=== PATIENT | male | born 1965 | race Hispanic/Latino ===

== ENCOUNTER → 2019-05-13 | Outpatient (CLI) | payer OTHER | END | disposition home or self-care (01) | LOC: RAH 10:12 | PROVIDERS: ATTEND Internal Medicine | DX: K76.0 Fatty (change of) liver, not elsewhere classified (principal) | CPT/HCPCS: 76705 ==

== ENCOUNTER → 2024-12-21 | Outpatient (CLI) | payer OTHER ==
--- NOTE | 2024-12-21 11:31 | HMCIMG ---
US ABDOMINAL COMPLETE REASON: unspecified abd pain COMPARISON: 05/13/2018 FINDINGS: There is normal sonographic appearance of the liver. There are no focal mass lesions. The liver is not enlarged.There is a normal-appearing gallbladder. Kidneys appear normal in size and appearance. There is no evidence of mass, stone or hydronephrosis. Spleen and common duct appear normal inferior vena cava appears normal. Aorta was not well visualized. The pancreas appears normal as well. IMPRESSION: 1. Unremarkable abdomen sonogram although the aorta was not well visualized.
== END | disposition home or self-care (01) ==
LOC: RAH 08:08
PROVIDERS: ATTEND Internal Medicine
DX: R10.9 Unspecified abdominal pain (principal)
CPT/HCPCS: 76700

== ENCOUNTER 2025-06-22 19:16 | Emergency (ER) | payer OTHER ==
[~2025-06-22] VITALS: Ht 160 cm; Wt 76.7 kg
--- NOTE | 2025-06-22 19:28 | ERN ---
ED Note History of Present Illness Stated Complaint: C/O PAIN TO RIGHT LEG AFTER FALLING IN HOLE Chief Complaint: Lower Extremity Pain/Injury Time Seen by MD: 19:21 Time Seen by Midlevel: 19:21 Dictation: The patient is a 60-year-old male with a history of seizures who presents to the emergency department with complaints of right leg pain after he accidentally fall into a hole that is about a 3 ft deep. Patient denies any back pain abdominal pain, denies any other injuries from the fall. Allergies: Coded Allergies: No Known Allergies (Unverified Allergy, Unknown, 06/22/25) Past Medical History Past Medical History: Hypertension, Seizure Surgical History: Other RN Note Reviewed/Agreed w/PFSH: Yes (With a) Review of System Dictation Constitutional: Negative for fever,chills, and weight loss Eyes: Negative for injury, pain,redness, and discharge ENT: Negative for injury,pain or swelling Cardiovascular: Negative for chest pain, palpitations, and edema Respiratory: Negative for shortness of breath, cough, and wheezing, Abdomen/GI: Negative for abdominal pain, nausea, vomiting, diarrhea, and constipation Back: Negative for injury and pain : Negative for injury, bleeding and discharge MS/Extremity: positive for right leg pain Skin: Negative for rash, and discoloration Neuro: Negative for headache, weakness, numbness, tingling, and seizure Psych: Negative for suicide ideation, homicidal ideation, and hallucinations Initial Vital Sign VS Vital Signs Date Time Temp Pulse Resp B/P (MAP) Pulse Ox O2 Delivery O2 Flow Rate FiO2 06/22/25 19:18 98.2 75 20 142/89 98 Room Air 06/22/25 19:29 0 21 Physical Exam Dictation Vital Signs reviewed General Appearance: Alert, oriented x 3, no acute distress, well developed, nourished. Head and Face: non-traumatic. Eyes: PERRL, pink conjunctivas, eyelid no trauma, anterior chamber with arcus senilis. Ears: Pinnas intact and no signs of trauma or erythema ear canals clear and no discharge TM no erythema Nose: No discharge, no bleeding. Oropharynx: Mouth normal, tongue pink. pharynx clear,no erythema, tonsils no exudates, no abscesses noted, mucous membrane moist Neck: Supple, non-tender, no thyromegaly, no masses, no JVD, no bruits Breast:Deferred Chest:No tenderness, no crepitus, no paradoxical movement, no retractions Lungs:Clear, well-ventilated, symmetric, no rales, no wheezing, no rhonchi, no stridor, good breath sounds bilaterally Heart: Regular rate, regular rhythm, no murmur, no gallops Vascular: no peripheral edema, dorsalis pedis 3+ bilaterally Abdomen: Soft, positive bowel sounds, nondistended, no guarding, nontender, no rebound, no masses no hepatomegaly, no splenomegaly, no Dimas's sign, no hernias. Rectal: Deferred Genital: Deferred Neurological: Normal speech, motor function intact, sensory function intact Musculoskeletal: Neck nontender, full range of motion, back nontender, full range of motion, Extremities: nontender, full range of motion , tenderness to right upper leg, full range of motion Skin: Color pink, dry, no turgor, no rash, no lacerations, no abrasions, no contusions. Lymphatic: Deferred Results (Laboratory/Radiology) Laboratory/Radiology CLINICAL HISTORY: fall COMPARISON: None provided. FINDINGS: BONES: No acute fracture or aggressive appearing osseous lesion. JOINTS: No dislocation. SOFT TISSUES: The soft tissues are unremarkable. IMPRESSION: No acute osseous abnormality. /[place] REASON: fall ORDERING PHYSICIAN: JULIO NORIEGA CONTINUOUS WAVE OPERATOR PROCEDURE: TIBFIB RT - TIBIA/FIBULA 2VWS RT EXAM: CR right Tibia and fibula, 3 View. CLINICAL HISTORY: fall COMPARISON: None provided. FINDINGS: BONES: No acute fracture or aggressive appearing osseous lesion. JOINTS: No dislocation. The joint spaces are normal. SOFT TISSUES: The soft tissues are unremarkable. IMPRESSION: No acute osseous abnormality. /[place] Labs Reviewed?: Yes ED Course ED Course Orders Procedure Category Date Status Time Femur 2vw Right RAD 06/22/25 Resulted 19:25 Tibia/Fibula 2vws Rt RAD 06/22/25 Resulted 19:25 Ketorolac 60mg/2ml PHA 06/22/25 Complete (Toradol 60mg/2ml) 19:30 Current Medications Medications (Trade) Dose Ordered Sig/Sofia Route PRN Reason Start Time Stop Time Status Last Admin Dose Admin Ketorolac Tromethamine (toRADol 60MG/ 2ML) 60 mg ONCE ONCE IM 06/22/25 19:30 06/22/25 19:31 DC 06/22/25 19:33 Vital Signs Date Time Temp Pulse Resp B/P (MAP) Pulse Ox O2 Delivery O2 Flow Rate FiO2 06/22/25 19:29 98.2 75 20 142/89 98 Room Air* 0 21 06/22/25 19:18 98.2 75 20 142/89 98 Room Air Medical Decision Making MDM The patient is a 60-year-old male with a history of seizures who presents to the emergency department with complaints of right leg pain after he accidentally fall into a hole that is about a 3 ft deep. Patient reports pain is worse and his thigh. Patient denies any back pain abdominal pain, denies any other injuries from the fall. X-ray showed no acute fractures. On physical exam patient is ambulatory, no open wounds noted, no swelling noted to knee, no swelling or deformity noted to ankle. Neurovascularly intact. Patient will be discharged to follow up with the PCP. Differential diagnosis: Femur fracture, tib-fib fracture, lower leg contusion Need for hospitalization: Patient does not meet criteria for hospitalization. There are no social concerns with this patient. DX & DISP Disposition: Discharge Departure Impression: Primary Impression: Right leg pain Additional Impression: Fall Condition: Stable Additional Instructions: Your x-ray showed no acute fractures. Please follow up with the primary doctor in 1-2 days. If anything worsens please return to ER. FOLLOW-UP WITH PRIMARY CARE PROVIDER IN 1 TO 2 DAYS. TAKE MEDICATIONS DIREC ANAHI HERE IN THE EMERGENCY ROOM. OKAY TO CONTINUE HOME MEDICATIONS UNLESS OTHERWISE DISCUSSED DURING YOUR VISIT IN THE EMERGENCY ROOM TODAY. RETURN TO YOUR NEAREST EMERGENCY ROOM IF SYMPTOMS WORSEN OR IF THERE IS NO IMPROVEMENT. CALL 911 IF YOU NEED IMMEDIATE ASSISTANCE. TAKE TYLENOL DOHF-SMA-XVEACHD NEEDED AND IF NO CONTRAINDICATIONS ARE PRESENT. INCREASE ORAL HYDRATION. A WOUND CULTURE OR URINE CULTURE WAS ORDERED HERE IN THE EMERGENCY ROOM DEPARTMENT PLEASE FOLLOW-UP WITH PRIMARY CARE PROVIDER AND ADVISE THEM TO GET REPEAT PORTS FROM OUR FACILITY. IF YOU HAD ANY KOBE WRAP/SPLINTS THAT WERE APPLIED HERE, PLEASE DO NOT REMOVE THEM UNTIL YOU SEE YOUR PRIMARY CARE OR SPECIALTY. Referrals: RICH RIVERA MD (PCP) Time of Disposition: 21:34 I have reviewed the case, and I agree with, Diagnosis and Plan JULIO NORIEGA [facility] Jun 22, 2025 19:28
--- NOTE | 2025-06-22 21:27 | HMCIMG ---
EXAM: CR right Tibia and fibula, 3 View. CLINICAL HISTORY: fall COMPARISON: None provided. FINDINGS: BONES: No acute fracture or aggressive appearing osseous lesion. JOINTS: No dislocation. The joint spaces are normal. SOFT TISSUES: The soft tissues are unremarkable. IMPRESSION: No acute osseous abnormality. /[place]
--- NOTE | 2025-06-22 21:28 | HMCIMG ---
EXAM: CR right Femur, 4 View. CLINICAL HISTORY: fall COMPARISON: None provided. FINDINGS: BONES: No acute fracture or aggressive appearing osseous lesion. JOINTS: No dislocation. SOFT TISSUES: The soft tissues are unremarkable. IMPRESSION: No acute osseous abnormality. /[place]
[2025-06-22 21:55] VITALS: BP 132/84; PULSE 72; RESP 20; TEMP 98.2; O2SAT 98
== END 2025-06-22 21:56 | disposition home or self-care (01) ==
LOC: EDH 19:16
DX: M79.661 Pain in right lower leg (principal); I10 Essential (primary) hypertension; W17.2XXA Fall into hole, initial encounter; Y93.89 Activity, other specified; Y92.89 Other specified places as the place of occurrence of the external cause; Y99.8 Other external cause status
CPT/HCPCS: 99284; 73552; 73590; 96372; J1885

== ENCOUNTER → 2025-06-27 | Outpatient (CLI) | payer OTHER ==
[2025-06-27 11:37] LABS: IMMATURE GRANULOCYTE ABSOLUTE 0.01 K/uL (0-1); NUCLEATED RED BLOOD CELLS 0.0 % (0.0-0.19); PLATELET COUNT (AUTO) 257 K/uL (130-400); RED BLOOD CELL COUNT(AUTO) 4.47 MIL/uL (4.50-6.20); RED CELL DISTRIBUTION WIDTH 12.6 % (11.0-15.5); WHITE BLOOD COUNT (AUTO) 4.8 K/uL (4.8-10.8)
[2025-06-27 11:52] LABS: ASPARTATE AMINOTRANSFERASE 25.0 U/L (10-37); CREATININE 0.7 mg/dL (0.5-1.3); GLOMERULAR FILTR. RATE CALC 106.0 mL/min (>90); GLUCOSE,RANDOM 93.0 mg/dL (70-105); SODIUM SERUM 141.0 mmol/L (136-145); TOTAL PROTEIN, SERUM 7.6 g/dL (6.0-8.3); UREA NITROGEN, BLOOD 10.0 mg/dL (7-18)
== END | disposition home or self-care (01) ==
LOC: LAB 10:47
PROVIDERS: ATTEND Internal Medicine Gastroenterology
DX: R10.30 Lower abdominal pain, unspecified (principal)
CPT/HCPCS: 36415; 80053; 85025

== ENCOUNTER 2025-07-04 10:17 | Emergency (ER) | payer OTHER ==
[~2025-07-04] VITALS: Ht 157.5 cm; Wt 77.1 kg
[2025-07-04 11:25] LABS: IMMATURE GRANULOCYTE ABSOLUTE 0.04 K/uL (0-1); NUCLEATED RED BLOOD CELLS 0.0 % (0.0-0.19); PLATELET COUNT (AUTO) 249 K/uL (130-400); RED BLOOD CELL COUNT(AUTO) 4.40 MIL/uL (4.50-6.20); RED CELL DISTRIBUTION WIDTH 12.4 % (11.0-15.5); WHITE BLOOD COUNT (AUTO) 5.2 K/uL (4.8-10.8)
[2025-07-04 11:31] LABS: CREATININE 0.7 mg/dL (0.5-1.3); GLOMERULAR FILTR. RATE CALC 106.0 mL/min (>90); GLUCOSE,RANDOM 101.0 mg/dL (70-105); SODIUM SERUM 139.0 mmol/L (136-145); UREA NITROGEN, BLOOD 11.0 mg/dL (7-18)
[2025-07-04 11:35] LABS: ASPARTATE AMINOTRANSFERASE 23.0 U/L (10-37); TOTAL PROTEIN, SERUM 7.7 g/dL (6.0-8.3)
--- NOTE | 2025-07-04 12:20 | HMCIMG ---
EXAM: Non-contrast CT examination of the Brain CLINICAL HISTORY: Seizure. TECHNIQUE: Thin collimated axial CT images of the brain were obtained, with sagittal and coronal reformatted images also submitted. CT scan done according to ALARA (As Low as Reasonably Achievable). CONTRAST USED: None. COMPARISON: None provided. FINDINGS: No acute intracranial abnormality is present. No acute cortical infarction, hemorrhage, mass, or mass effect. No hydrocephalus or abnormal extra-axial fluid collections. Cavum septum vergae, normal variant. The posterior fossa is unremarkable. The skull base and calvarium are intact. The included portions of the mastoid air cells are clear. Mild mucosal thickening in the bilateral ethmoid air cells. IMPRESSION: No acute intracranial abnormality is present. /[place]
--- NOTE | 2025-07-04 12:37 | ERN ---
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 Patient was in the outpatient imaging center getting a CT scan of the abdomen for low abdominal pain in the has been having for two weeks when he had a seizure. Patient states he is still having lower abdominal pain. Seizures were described as patient looks dazed, as per daughter at bedside that is the where the patient gets his seizures. Patient in his on Dilantin and Keppra. Denies any fever, nausea vomiting or diarrhea. Allergies: Coded Allergies: No Known Allergies (Unverified Allergy, Unknown, 06/22/25) Home Meds Active Scripts Cephalexin Monohydrate (Keflex) 500 Mg Cap, 500 MG PO QID for 7 Days, #28 CAP Prov:SHIVA GORE CENTRAL SUPPLY NURSE 07/04/25 Past Medical History Past Medical History: Hypertension, Seizure Additional Past Medical Hx: NON COMPLIANT W/ HTN MEDS Surgical History: Other Review of System Dictation Constitutional: Negative for fever,chills, and weight loss Eyes: Negative for injury, pain,redness, and discharge ENT: Negative for injury,pain or swelling Cardiovascular: Negative for chest pain, palpitations, and edema Respiratory: Negative for shortness of breath, cough, and wheezing, Abdomen/GI: Complaining of lower abdominal pain, no nausea, no vomiting, no diarrhea, and no constipation Back: Negative for injury and pain : Negative for injury, bleeding and discharge MS/Extremity: Negative for injury and deformity Skin: Negative for rash, and discoloration Neuro: Negative for headache, weakness, numbness, tingling, and seizure Psych: Negative for suicide ideation, homicidal ideation, and hallucinations Review of Systems: was completed Initial Vital Sign VS Vital Signs Date Time Temp Pulse Resp B/P (MAP) Pulse Ox O2 Delivery O2 Flow Rate FiO2 07/04/25 10:18 97.9 89 16 126/93 97 Room Air 0 07/04/25 10:23 21 Physical Exam Dictation General: awake, alert, NAD Head/Face: Normocephalic, atraumatic Eyes: PERRL, EOMI, vision at baseline ENT: oral cavity clear, TMs clear, no signs of infection Neck: Trachea midline, supple, no nuchal rigidity Cardiovascular: RRR, normal S1/S2, No MRGs, no JVD Respiratory: CTAB, no respiratory distress, No rales or wheezes Abdomen: Soft, non-tender, non-distended, normal bowel sounds, no guarding or rebound. Skin: Warm, dry, normal turgor, no rash MS/Extremity: Pulses equal, no cyanosis, neurovascular intact, FROM Neuro: COAx4, GCS 15, strength 5/5, CN 2-12 intact, normal cerebellar exam, normal gait, Psych: Normal behavior, mood, and affect normal Results (Laboratory/Radiology) Laboratory/Radiology Laboratory Tests Test 07/04/25 10:56 07/04/25 15:16 White Blood Count 5.2 K/uL (4.8-10.8) Red Blood Count 4.40 MIL/uL (4.50-6.20) L Hemoglobin 14.7 g/dL (14.0-18.0) Hematocrit 43.2 % (42-54) Mean Corpuscular Volume 98.2 fL (79-99) Mean Corpuscular Hemoglobin 33.4 pg (27.0-33.0) H Mean Corpuscular Hemoglobin Concent 34.0 g/dL (32.0-36.0) Red Cell Distribution Width 12.4 % (11.0-15.5) Platelet Count 249 K/uL (130-400) Mean Platelet Volume 8.8 fL (7.5-10.5) Immature Granulocyte % (Auto) 0.8 % (0-1) Neutrophils (%) (Auto) 59.1 % (40.0-77.0) Lymphocytes (%) (Auto) 33.7 % (21.0-51.0) Monocytes (%) (Auto) 3.7 % (3.0-13.0) Eosinophils (%) (Auto) 2.1 % (0.0-8.0) Basophils (%) (Auto) 0.6 % (0.0-5.0) Neutrophils # (Auto) 3.1 K/uL (1.8-7.7) Lymphocytes # (Auto) 1.7 K/uL (1.0-4.8) Monocytes # (Auto) 0.2 K/uL (0.1-1.0) Eosinophils # (Auto) 0.11 K/uL (0.00-0.70) Basophils # (Auto) 0.03 K/uL (0.00-0.20) Absolute Immature Granulocyte (auto 0.04 K/uL (0-1) Nucleated Red Blood Cells 0.0 % (0.0-0.19) Sodium Level 139 mmol/L (136-145) Potassium Level 3.7 mmol/L (3.5-5.1) Chloride Level 102 mmol/L (101-111) Carbon Dioxide Level 30 mmol/L (21-32) Blood Urea Nitrogen 11 mg/dL (7-18) Creatinine 0.7 mg/dL (0.5-1.3) Glomerular Filtration Rate Calc 106 mL/min (>90) Random Glucose 101 mg/dL (70-105) Total Calcium 8.5 mg/dL (8.5-10.1) Total Bilirubin 0.3 mg/dL (0.2-1.0) Direct Bilirubin 0.1 mg/dL (0.0-0.3) Aspartate Amino Transf (AST/SGOT) 23 U/L (10-37) Alanine Aminotransferase (ALT/SGPT) 29 U/L (12-78) Alkaline Phosphatase 138 U/L (50-136) H Total Protein 7.7 g/dL (6.0-8.3) Albumin 4.2 g/dL (3.5-5.0) Lipase 20 U/L (16-77) Phenytoin (Dilantin) Level 21.4 mcg/mL (10.0-20.0) H Urine Color LIGHT-YELLOW (YELLOW) Urine Appearance CLOUDY (CLEAR) H Urine pH 7.5 (5.0-8.0) Urine Specific [place] 1.027 (1.001-1.031) Urine Protein NEGATIVE mg/dL (NEGATIVE) Urine Glucose (UA) 70 mg/dL (NEGATIVE) H Urine Ketones NEGATIVE mg/dL (NEGATIVE) Urine Occult Blood NEGATIVE (NEGATIVE) Urine Nitrate NEGATIVE (NEGATIVE) Urine Bilirubin NEGATIVE mg/dL (NEGATIVE) Urine Urobilinogen 0.2 mg/dL (0.2-1.0) Urine Leukocyte Esterase NEGATIVE Tammy/uL Urine RBC 2-5 /HPF (0-1) H Urine WBC 2-5 /HPF (0-1) H Urine Amorphous Crystals (Auto) RARE /LPF (None Seen) Urine Bacteria FEW /HPF (None Seen) Urine Opiates Screen NEGATIVE (NEGATIVE) Urine Barbiturates Screen NEGATIVE (NEGATIVE) Urine Phencyclidine Screen NEGATIVE (NEGATIVE) Urine Amphetamines Screen NEGATIVE (NEGATIVE) Urine Benzodiazepines Screen NEGATIVE (NEGATIVE) Urine Cocaine Screen NEGATIVE (NEGATIVE) Urine Marijuana (THC) Screen NEGATIVE (NEGATIVE) Labs Reviewed?: Yes CT Scan Comment: [place] [id number] [id number] IMAGING REPORT Signed PATIENT: ANDREWS SAHNI JR MR#: [id number] : 1965 SEX: M AGE: 60 LOCATION: [facility] ORDER 1029 STATUS: REG [facility] REPORT#: [id number] SERVICE 26 REASON: lower abdominal pain ORDERING PHYSICIAN: SHIVA GORE NP PROCEDURE: HEAD WO - CT HEAD/BRAIN W/O CONTRAST EXAM: Non-contrast CT examination of the Brain CLINICAL HISTORY: Seizure. TECHNIQUE: Thin collimated axial CT images of the brain were obtained, with sagittal and coronal reformatted images also submitted. CT scan done according to ALARA (As Low as Reasonably Achievable). CONTRAST USED: None. COMPARISON: None provided. FINDINGS: No acute intracranial abnormality is present. No acute cortical infarction, hemorrhage, mass, or mass effect. No hydrocephalus or abnormal extra-axial fluid collections. Cavum septum vergae, normal variant. The posterior fossa is unremarkable. The skull base and calvarium are intact. The included portions of the mastoid air cells are clear. Mild mucosal thickening in the bilateral ethmoid air cells. IMPRESSION: No acute intracranial abnormality is present. /[place] DICTATED BY: MALACHI ZAVALA Jr., MD DATE: 07/04/251318 ELECTRONICALLY SIGNED BY: MALACHI ZAVALA Jr., MD DATE: 07/04/251318 [place] [address] [phone] IMAGING REPORT Signed PATIENT: ANDREWS SAHNI JR MR#: [id number] : 1965 SEX: M AGE: 60 LOCATION: [facility] ORDER 1029 STATUS: REG ER REPORT#: [id number] SERVICE 1027 REASON: lower abdominal pain ORDERING PHYSICIAN: SHIVA GORE NP PROCEDURE: ABD PEL W - CT ABDOMEN/PELVIS W/CONTRAST EXAM: CT abdomen and pelvis with IV contrast HISTORY: Lower abdominal pain TECHNIQUE: Multiple axial CT slices through the abdomen and pelvis with IV contrast. Coronal and sagittal reconstructions were performed. CT scans are performed using one of these three dose reduction techniques: automated exposure control, adjustment of the mA and/or kV according to patient size, or use of iterative reconstruction techniques. COMPARISON: 07/04/2025 FINDINGS: Atelectasis seen in the lung bases. Few tiny hepatic cysts. Gallbladder is unremarkable. Spleen is normal. No pancreatic lesions low density left adrenal lesion possible representing adenoma. Bilateral renal cysts. No significant hydronephrosis. Mild thickening of the bladder wall. Calcification seen in the prostate. No free fluid. No pneumoperitoneum. No bowel dilatation. Appendix is normal. No abdominal/pelvic lymphadenopathy. Abdominal vasculature is patent. Vascular calcifications. Degenerative changes. IMPRESSION: Mild thickening of the bladder wall possible secondary to underdistention or infection. /[place] DICTATED BY: ISI GLASGOW MD DATE: 07/04/251710 ELECTRONICALLY SIGNED BY: ISI GLASGOW MD DATE: 07/04/251710 ED Course ED Course Orders Procedure Category Date Status Time Cbc With Differential LAB 07/04/25 Complete 10:27 Basic Metabolic Panel LAB 07/04/25 Complete 10:27 Hepatic Function Panel LAB 07/04/25 Complete 10:27 Lipase LAB 07/04/25 Complete 10:27 Urinalysis Profile LAB 07/04/25 Complete 10:27 Drug Screen Urine LAB 07/04/25 Complete 10:27 Ct Abdomen/Pelvis CT 07/04/25 Resulted W/Contrast 10:27 Ct Head/Brain W/O CT 07/04/25 Resulted Contrast 10:27 Levetiracetam 500 PHA 07/04/25 Complete Mg/5 Ml Sd V (Keppra 5 14:19 Iohexol (Omnipaque) PHA 07/04/25 Complete 14:28 Iohexol (Omnipaque) PHA 07/04/25 Complete 14:48 Ceftriaxone 1g Vial PHA 07/04/25 In Process (Rocephine 1g Inj) 16:28 Phenytoin (Sergo) In LAB 07/04/25 Complete House 16:49 Levetiracetam 500 PHA 07/04/25 In Process Mg/5 Ml Sd V (Keppra 5 18:08 Current Medications Medications (Trade) Dose Ordered Sig/Sofia Route PRN Reason Start Time Stop Time Status Last Admin Dose Admin Ceftriaxone Sodium (ROCEphine 1G INJ) 1 gm ONCE IVPB 07/04/25 16:28 07/04/25 20:30 07/04/25 16:44 Iohexol (Omnipaque) 75 ml STK-MED ONCE IV 07/04/25 14:28 07/04/25 14:32 DC Iohexol (Omnipaque) 75 ml STK-MED ONCE IV 07/04/25 14:48 07/04/25 14:48 DC Levetiracetam (kepPRA 500 MG/5 ML SD VIAL) 1,000 mg ONCE IV 07/04/25 18:08 07/04/25 22:30 07/04/25 18:24 Levetiracetam (kepPRA 500 MG/5 ML SD VIAL) 1,000 mg ONCE STAT IV 07/04/25 14:19 07/04/25 14:23 DC 07/04/25 14:36 Vital Signs Date Time Temp Pulse Resp B/P (MAP) Pulse Ox O2 Delivery O2 Flow Rate FiO2 07/04/25 17:45 98.1 100 18 137/83 100 Room Air* 0 07/04/25 17:05 98.1 96 18 137/81 96 Room Air* 0 07/04/25 16:34 98.1 100 18 153/80 98 Room Air* 0 07/04/25 15:21 98.1 95 18 150/86 97 Room Air* 0 07/04/25 14:45 98.1 91 18 155/82 97 Room Air* 0 07/04/25 13:29 98.1 86 18 169/92 98 Room Air* 0 07/04/25 10:23 97.9 91 16 156/93 97 Room Air* 0 21 07/04/25 10:18 97.9 89 16 126/93 97 Room Air 0 Medical Decision Making MDM MDM: 60-year-old male with a history of seizures coming in for evaluation of seizures. Patient was in the outpatient imaging center getting a CT scan of the abdomen for low abdominal pain in the has been having for two weeks when he had a seizure. Patient states he is still having lower abdominal pain. Seizures were described as patient looks dazed, as per daughter at bedside that is the where the patient gets his seizures. Patient in his on Dilantin and Keppra. Denies any fever, nausea vomiting or diarrhea. Follow up his unremarkable. CT scan of the head shows no acute findings. A CT of the abdomen and pelvis shows thickened bladder could be related to infection. Patient will be treated as cystitis with the Rocephin given here in the ER and sent home with a prescription. While I am educated patient on findings patient tells me that he did not take his seizure medications last night or this morning because he was sudden to take any medications prior to his CT scan. Educated the patient this could be the possibility why he had a seizure earlier today in the another one in the ER. Patient agrees. Discussed with the patient that he needs to take medications as prescribed and to return to the hospital as needed. Patient verbalized understanding, answered all questions. Discharge patient had another absence seizure lasting about a minute. Vital signs are stable. Patient has a GCS of 14, postictal. Did SOC on patient, spoke to neurologist Dr. Bello recommended to give another g of Keppra, total of 2 g of Keppra observe and if patient does not have another stated patient can be safely discharged home in restart his home medications tonight. 1730: Patient is back to baseline. Educated patient that he has to take his home medications tonight. And continue taking them as scheduled until he sees his PCP or neurologist. Patient verbalized understanding, vital signs stable. Differential diagnosis: Breakthrough seizure, electrolyte abnormality, brain abnormality, appendicitis Rationale: Tests considered and ordered secondary to shared decision making include: Previous outside records reviewed: Old ER visits. Risk of complication and/or morbidity or mortality of patient management: None Medications-Per medication reconciliation Need for hospitalization: Patient does not meet criteria for hospitalization. Need for emergency major/minor surgery: No There are no social concerns with this patient. Prescription drug management Prescriptions will include symptomatic care Patient's prior external medical records from other ER visits were reviewed by me as indicated. Prior testing and results from previous visits were reviewed. Prior tests were taken into account with medical decision making and resource utilization, independent historian/historians were used to obtain complete medical history. I independently interpreted the test that were performed, results were reviewed by me and considered findings on radiology if ordered. Medical management and examination interpretation discussions were had by me with other qualified healthcare professionals as indicated for the patient's care. DX & DISP Disposition: Discharge Departure Impression: Primary Impression: Breakthrough seizure Additional Impression: Cystitis Condition: Stable Scripts Cephalexin Monohydrate (Keflex) 500 Mg Cap 500 MG PO QID for 7 Days, #28 CAP Prov: SHIVA GORE NP 07/04/25 Additional Instructions: Take your seizure medication as prescribed. Take your antibiotic that I will prescribe for this cystitis. And follow up with your PCP in 1-2 days. Referrals: RICH RIVERA MD (PCP) Time of Disposition: 16:40 I have reviewed the case, and I agree with, Diagnosis and Plan SHIVA GORE NP Jul 04, 2025 12:37
--- NOTE | 2025-07-04 13:25 | NUR ---
SEIZURE PADS PLACED ON STRETCHER
--- NOTE | 2025-07-04 14:20 | NUR ---
PT SUDDENLY BECAUSE CONFUSED, ATTEMPTING TO PULL OUT IV AND GET OUT OF BED. PROVIDER WAS INFORMED.
[2025-07-04] MEDS ORDERED: IOHEXOL-350 75 ML VIAL IV ONE ×2 (14:28→14:48)
--- NOTE | 2025-07-04 14:31 | NUR ---
PT IS ALERT, FOLLOWING COMMANDS, COOPERATIVE AT THIS TIME. PT APPEARS TO BE BACK TO BASELINE. NO TONIC CLONIC ACTIVITY NOTED.
[2025-07-04 15:25] LABS: APPEARANCE,URINE CLOUDY (CLEAR); GLUCOSE, URINE (UA) 70 mg/dL (NEGATIVE); LEUKOCYTE ESTERASE ,URINE NEGATIVE Leu/uL (NEGATIVE); NITRATE,URINE NEGATIVE (NEGATIVE); OCCULT BLOOD,URINE NEGATIVE (NEGATIVE)
[2025-07-04 15:32] LABS: ADD UA MICROSCOPIC YES; AMPHET/METH SCREEN,URINE NEGATIVE (NEGATIVE); BARBITURATE SCREEN, URINE NEGATIVE (NEGATIVE); CANNABINOID SCREEN,URINE NEGATIVE (NEGATIVE); COCAINE SCREEN,URINE NEGATIVE (NEGATIVE)
--- NOTE | 2025-07-04 16:13 | HMCIMG ---
EXAM: CT abdomen and pelvis with IV contrast HISTORY: Lower abdominal pain TECHNIQUE: Multiple axial CT slices through the abdomen and pelvis with IV contrast. Coronal and sagittal reconstructions were performed. CT scans are performed using one of these three dose reduction techniques: automated exposure control, adjustment of the mA and/or kV according to patient size, or use of iterative reconstruction techniques. COMPARISON: 07/04/2025 FINDINGS: Atelectasis seen in the lung bases. Few tiny hepatic cysts. Gallbladder is unremarkable. Spleen is normal. No pancreatic lesions low density left adrenal lesion possible representing adenoma. Bilateral renal cysts. No significant hydronephrosis. Mild thickening of the bladder wall. Calcification seen in the prostate. No free fluid. No pneumoperitoneum. No bowel dilatation. Appendix is normal. No abdominal/pelvic lymphadenopathy. Abdominal vasculature is patent. Vascular calcifications. Degenerative changes. IMPRESSION: Mild thickening of the bladder wall possible secondary to underdistention or infection. /[place]
[2025-07-04] MEDS ORDERED: CEPH500B PO (16:40)
--- NOTE | 2025-07-04 16:45 | NUR ---
PT NOTED TO BE CONFUSED,TAKING THINGS OFF. NO TONIC CLONIC ACTIVITY NOTED BUT PT IS UNAWARE OF SURROUNDINGS. PT BECAME MOMENTARILY CONFUSED AND MILDY COMBATIVE, DIFFUCULT TO REDIRECT.
--- NOTE | 2025-07-04 16:59 | NUR ---
PT IS MOREALERT, FOLOWING BASIC COMMANDS. STILL APPEARS TO BE POST-ICTAL
--- NOTE | 2025-07-04 17:40 | NUR ---
TELE NEURO CONSULT COMPLETED AT THIS TIME
--- NOTE | 2025-07-04 17:52 | BSKYNEURO ---
[facility] Procedure Note [facility] Consult Consult [facility] Note # Demographics Consult Type: General Neurology Patient Location: Emergency Room First Name: ANDREWS Last Name: KAITLYN ACOSTA Date of : 1965 Age: 60 Gender: Male Facility: [facility] Time of Initial Page (Central Time): 07/04/2025 17:24 First Contact with Site (Central Time): 07/04/2025 17:24 # HPI History: Here with absence like seizure in outpatient clinic. On dilantin and keppa normally but has skipped last night and morning dose because he was told to be NPO for outpatint scans. Now improving toards baseline # Scores Level of Consciousness 1a: [0] = Alert; keenly responsive LOC Questions 1b: [1] = Answers one correctly LOC Commands 1c: [0] = Performs both tasks correctly Best Gaze 2: [0] = Normal Visual 3: [0] = No visual loss Facial Palsy 4: [0] = Normal symmetrical movements Motor Arm Left 5a: [0] = No drift Motor Arm Right 5b: [0] = No drift Motor Leg Left 6a: [0] = No drift Motor Leg Right 6b: [0] = No drift Limb Ataxia 7: [0] = Absent Sensory 8: [0] = Normal Best Language 9: [0] = No aphasia Dysarthria 10: [0] = Normal Extinction and Inattention 11: [0] = No abnormality NIHSS Total: 1 # Data Head CT: - no bleed - per radiologist read # Assessment Impression: - Seizure POSt ictal. Provoked seizure from skipping home seizure medications. Give keppra 2g iv now and observe. restart home meds. # Plan Other: - If patient has any neurological deterioration please call me back immediately - I have discussed my recommendations with the referring provider - seizure precautions # Logistics Attestation of consult completion: The patient is located at: [facility]. Facility staff participated in the visit. I performed this telemedicine visit from my offsite office utilizing interactive 2 way audio and visual telecommunication technology at the request of the onsite emergency room provider. Total time spent in telemedicine encounter: I spent 21 minutes reviewing clinical data and/or imaging, obtaining history, examining the patient, communicating with the onsite care team, and in preparation of this report. # Demographics First Name: ANDREWS Last Name: KAITLYN ACOSTA Facility: [facility] Electronically signed at 07/04/2025 17:52 (Central Time) by Miguel Elaine MD Neuro Consult Order placed for: Yes CARSON ELAINE MD Jul 04, 2025 17:52
[2025-07-04 19:13] VITALS: BP 128/79; PULSE 95; RESP 18; TEMP 98.1; O2SAT 96
== END 2025-07-04 19:14 | disposition home or self-care (01) ==
LOC: EDH 10:17
DX: G40.909 Epilepsy, unspecified, not intractable, without status epilepticus (principal); N30.90 Cystitis, unspecified without hematuria; I10 Essential (primary) hypertension; Z79.899 Other long term (current) drug therapy
CPT/HCPCS: 99285; 70450; 96365; 96375; 80185; 80076; 80048; 80305; 83690; 85025; 36415; 74177; 96376; 81001; J1953 ×2; J0696; Q9967

== ENCOUNTER → 2025-07-21 | Outpatient (CLI) | payer OTHER ==
[~2025-07-21] MED LIST: CEPH500B PO
[2025-07-21 11:13] LABS: IMMATURE GRANULOCYTE ABSOLUTE 0.01 K/uL (0-1); NUCLEATED RED BLOOD CELLS 0.0 % (0.0-0.19); PLATELET COUNT (AUTO) 290 K/uL (130-400); RED BLOOD CELL COUNT(AUTO) 4.25 MIL/uL (4.50-6.20); RED CELL DISTRIBUTION WIDTH 12.9 % (11.0-15.5); WHITE BLOOD COUNT (AUTO) 4.4 K/uL (4.8-10.8)
[2025-07-21 11:28] LABS: ASPARTATE AMINOTRANSFERASE 27.0 U/L (10-37); CREATININE 0.8 mg/dL (0.5-1.3); GLOMERULAR FILTR. RATE CALC 102.0 mL/min (>90); GLUCOSE,RANDOM 92.0 mg/dL (70-105); SODIUM SERUM 140.0 mmol/L (136-145); TOTAL PROTEIN, SERUM 7.9 g/dL (6.0-8.3); UREA NITROGEN, BLOOD 13.0 mg/dL (7-18)
[2025-07-21 11:47] LABS: INR 1.03 (0.85-1.15)
[2025-07-26 11:12] LABS: E. HISTOLYTICA (AMEBIASIS) AB Negative (Negative)
== END | disposition home or self-care (01) ==
LOC: LAB 10:33
PROVIDERS: ATTEND Internal Medicine Gastroenterology
DX: R93.2 Abnormal findings on diagnostic imaging of liver and biliary tract (principal); K29.80 Duodenitis without bleeding
CPT/HCPCS: 36415; 80053; 82105; 85025; 85610; 86682; 86753